=== PATIENT | male | born 1945 | race Caucasian/White ===

== ENCOUNTER 2023-05-06 08:20 | Day surgery (SDC) | payer OTHER ==
[2023-04-30 15:03] LABS: Hematocrit 38.6 % (39.6-49.0); MCV 92.4 fL (80-100); MPV 8.1 fL (7.6-11.3); RBC Red Blood Cell Count 4.18 M/uL (4.33-5.43)
[2023-04-30 15:07] LABS: Protime INR 1.05
--- NOTE | 2023-04-30 16:04 | RAD REPORT ---
EXAM DESCRIPTION: Anny Quarles And Melanie (2 Views)04/30/2023 3:37 pm CLINICAL HISTORY: Preop for lithotripsy COMPARISON: 2019 FINDINGS: Mild chronic appearing lung opacities. Mild left basilar opacity has developed The heart is mildly enlarged. Pacemaker leads in place IMPRESSION: Mild left basilar opacity may represent a mild pneumonia
--- NOTE | 2023-04-30 16:06 | RAD REPORT ---
EXAM DESCRIPTION: RAD - Abdomen 1 View (KUB) - 04/30/2023 3:37 pm CLINICAL HISTORY: Preop for lithotripsy FINDINGS: The bowel gas pattern is unremarkable. Vague 12 millimeter density overlies the expected location of the lower pole of the right kidney. Thi s may represent a calculus Pelvic calcifications unchanged 2019 presumably phleboliths
[2023-05-06] MEDS ORDERED: Ringers Lactate 1,000 ML IV ONE (08:51)
[2023-05-06] MEDS ORDERED: LIDOCAINE 2% MPF 5 ML VIAL ONE (09:50)
[2023-05-06] MEDS ORDERED: ONDANSETRON 4 MG/2 ML VIAL ONE (09:50)
[2023-05-06] MEDS ORDERED: propofoL 200 MG/20 ML VIAL IV ONE (09:50)
[2023-05-06] MEDS ORDERED: dexAMETHasone 4 MG/ML VIAL ONE (09:50)
[2023-05-06] MEDS ORDERED: FENTANYL CITR 100 MCG/2 ML ONE (09:50)
[2023-05-06] MEDS: CEFAZOLIN SODIUM 2 GM/VIAL ONE ×2 (11:18→11:26)
[2023-05-06] MEDS ORDERED: CODEINE 30MG/APAP 300MG TAB PO PRN (11:58)
[2023-05-06 14:02] VITALS: BP 137/89; TEMP 96.5; O2SAT 100
[2023-05-06] MEDS ORDERED: CEFAZOLIN SODIUM 2 GM/VIAL ONE (14:05)
--- NOTE | 2023-05-06 16:47 | OP ---
Surgeon: DOMINGA HOOVER Preoperative Diagnoses: 1.Right nephrolithiasis between 6 to 8 mm. 2.Lung opacity seen on preoperative chest x-ray. Postoperative Diagnoses: 1.Right nephrolithiasis between 6 to 8 mm. 2.Lung opacity seen on preoperative chest x-ray. Principal Procedure: Right extracorporeal shockwave lithotripsy/ESWL. Indication For Procedure: Mr. Quinonez is a 78-year-old gentleman with CHF, on digoxin, with a pacemak er defibrillator since 2005, with a history of hypertension, Hodgkin disease, history of colon cancer , and a prior renal calculi managed by ESWL with Dr. Mcdonald in [place] who presents with a solitar y residual right renal calculus measuring somewhere between 6 to [address]. He underwent pr eoperative cardiology evaluation and was cleared to proceed with a shockwave lithotripsy approach and specifically able to hold his aspirin for the requisite amount of time preoperative and postoperativ jake to allow him to have the noninvasive surgical management of his stone. Procedure In Detail: The patient was consented in the preoperative holding area and informed of the abnormal finding on his chest x-ray. He was counseled explicitly to follow up with his primary care physician and potentially see a admissions officer to evaluate that. I specifically counseled on the risk of undiagnosed lung malignancy and suggested that if he were unable to have that managed with [facility], he should notify me and I would introduce pulmonology consultation on his behal f. He agreed to see his PCP; so, he was then transferred to the operative suite where general anesth esia was induced. He was given Ancef 2 g IV antimicrobial prophylaxis and placed supine on the [facility] dure table with a water staff beneath his right flank. Targeting of the stone was performed using fl uoroscopic imaging in the AP and dorsal ventral domains and the faint 6 mm to 7 mm calcification was observed in the expected location within the lower pole lateral of the right kidney just above the L3 vertebral body. As a result, shockwave lithotripsy was then initiated with a power of 4 and increas ed over the course of 500 shocks to a power of approximately 6.5. A 2 minute pause was given at arou nd 200 shocks, and after the 2 minute pause, we continued with shockwave lithotripsy at a 1000 shocks , we reviewed the imaging and continued as long as the stone was visible for an additional 1000 shock s for a total of 2000 shocks delivered. At the end of the 2000 shocks, this stone was imperceptible on plain film/fluoroscopy, and so further shockwave lithotripsy was discontinued. He was then awaken ed from general anesthesia, transferred to a stretcher, and then transferred to the recovery room in good condition. Complications: None. Discharge Disposition: He should remain off his baby aspirin for at least the next 7 days and may re sume it at that time as long as his urine is free of blood and clear urine. Subsequent followup shou ld be established in about 1 to 2 months' time with a preclinic KUB obtained. He should also strain his urine to collect any stone dust in the interim. CARLITA/ILAN Voice ID: [id number] Report ID: [id number]
== END 2023-05-06 13:55 | disposition home or self-care (01) ==
LOC: OR 08:20
PROVIDERS: ATTEND Urology
PROC: 0TC08ZZ Extirpation of Matter from Right Kidney, Via Natural or Artificial Opening Endoscopic (ICD-10-PCS; principal; 2023-05-06 10:00)
DX: N20.0 Calculus of kidney (principal); I10 Essential (primary) hypertension; I50.9 Heart failure, unspecified; Z85.71 Personal history of Hodgkin lymphoma; Z85.038 Personal history of other malignant neoplasm of large intestine
CPT/HCPCS: 50590; 87088; 85025; 87086; 80048; 36415; 85610; 85730; 74018; 71046; J2704; J1100; J2001; J3010; J2405; J7120

== ENCOUNTER 2024-04-22 09:26 | Day surgery (SDC) | payer OTHER ==
[2024-04-07 15:38] LABS: Absolute Eosinophils 0.5 K/uL (0-0.5); Absolute Lymphocytes (CBC) 2.3 K/uL (0.7-4.9); Absolute Monocytes 0.9 K/uL (0.1-1.3); Absolute Neutrophil 4.3 K/uL (1.8-8.0); Basophils % 0.6 % (0-1.3); Eosinophils % 6.4 % (0-4.4); Hemoglobin 12.6 g/dL (13.6-17.9); Lymphocytes % 28.5 % (15.3-44.8); MCH 30.3 pg (27.0-35.0); MCHC 32.4 g/dL (32.0-36.0); MCV 93.5 fL (80-100); MPV 8.7 fL (7.6-11.3); Monocytes % 11.4 % (3.3-12.3); Neutrophils % 53.1 % (41.7-73.7); Nucleated Red Blood Cells % 0.1 % (0-0); Platelets 185 thou/uL (152-406); RBC Red Blood Cell Count 4.18 M/uL (4.33-5.43); Red Cell Distribution Width 15.2 % (12.1-15.2)
[2024-04-07 15:56] LABS: PT Prothrombin Time 12.1 SECONDS (9.5-12.5); Protime INR 1.1
[2024-04-07 15:58] LABS: Anion Gap 7.3 mEq/L (5.0-15.0); Potassium 4.3 mEq/L (3.5-5.1)
--- NOTE | 2024-04-07 21:42 | RAD REPORT ---
EXAM DESCRIPTION: RAD - Chest Pa And Lat (2 Views) - 04/07/2024 3:30 pm CLINICAL HISTORY: pre op. Hypertension COMPARISON: Chest Pa And Lat (2 Views) dated 04/30/2023; Abdomen 1 View (KUB) dated 06/14/2019 TECHNIQUE: PA and lateral views of the chest were obtained. FINDINGS: Left chest wall pacer in unchanged position. Patchy left basilar airspace opacification in volving the lower lobe, appears stable compared to the 04/30/2023 exam. Heart size is normal and cent ral vasculature is within normal limits. No pleural effusion or pneumothorax seen. No acute bony find ing noted. IMPRESSION: Stable patchy left basilar airspace opacities, may reflect scarring although possibility of recurrent pneumonia cannot be entirely excluded.
--- NOTE | 2024-04-12 15:11 | EKG ---
Test Date: 2024-04-07 Test Time: 15:17:17 Transmission Mechanic: NADEEM MEASUREMENT RESULTS: Intervals: Rate: 66 RI: 120 QRSD: 168 QT: 448 QTc: 469 Redby: P: 91 RI: 120 QRS: 265 T: 87 INTERPRETIVE STATEMENTS: AV sequential or dual chamber electronic pacemaker Compared to ECG 07/25/2008 10:31:15 No significant changes Electronically Signed On 04-12-24 14:57:07 CDT by Jayesh Diehl
[2024-04-22] MEDS: Ringers Lactate 1,000 ML IV ONE (10:05)
[2024-04-22] MEDS ORDERED: LIDOCAINE 1% MPF 5 ML VIAL ONE (11:00)
[2024-04-22] MEDS ORDERED: FENTANYL CITR 100 MCG/2 ML ONE (11:00)
[2024-04-22] MEDS ORDERED: propofoL 200 MG/20 ML VIAL IV ONE (11:00)
[2024-04-22] MEDS: CEFAZOLIN SODIUM 2 GM/VIAL ONE (12:14)
[2024-04-22] MEDS ORDERED: NS 0.9% VIAL 10 ML ONE (12:25)
[2024-04-22] MEDS ORDERED: Phenylephrine HCl 10 MG/ML 1 ML VIAL ONE (12:25)
[2024-04-22] MEDS ORDERED: HYDROCODONE/APAP 5/325 MG TAB PO PRN (13:43)
--- NOTE | 2024-04-22 13:44 | RAD REPORT ---
EXAM DESCRIPTION: RAD - Urethrocystogrphy Retrograde - 04/22/2024 1:19 pm CLINICAL HISTORY: ICD N 20.0 FINDINGS: 14 fluoroscopic spot images obtained. Fluoroscopy time.28 minutes Each ureter was cannulated and contrast administered. Subsequently an ureteral stent was placed in te ach ureter. Examination was performed by Dr Jim
[2024-04-22] MEDS ORDERED: PHENAZOPYRIDINE 100MG TAB PO ONE (14:05)
[2024-04-22] MEDS: PHENAZOPYRIDINE 100MG TAB PO ONE (14:09)
[2024-04-22 14:14] VITALS: BP 139/83; TEMP 97; O2SAT 100
--- NOTE | 2024-04-23 02:04 | OP ---
Date of Procedure: 04/22/2024 Surgeon: DOMINGA HOOVER Preoperative Diagnoses: 1.Right-sided hydronephrosis. 2.Bilateral delayed renal drainage. 3.Lower urinary tract symptoms, obstructive. Postoperative Diagnoses: 1.Right pelviectasis. 2.Right functional ureteral obstruction. 3.Left ureterovesical junction obstruction. 4.BPH with lower urinary tract obstruction and symptoms. 5.Membrano-bulbar urethral stricture. Principal Procedures: 1.Cystoscopy. 2.Sequential urethral dilation over a wire. 3.Bilateral retrograde pyelography. 4.Right ureteroscopy. 5.Right 7-American ureteral stent placement. 6.Left 6-American ureteral stent placement. 7.20-American urethral Gallardo catheter placement. Indication For Procedure: Mr. Quinonez presented to the Urology Clinic having a history of right nephr olithiasis and undergoing ESWL on the right side. Subsequently, he was evaluated at an outpatient fa cility with a MAG 3 Lasix renogram after hydronephrosis was observed and in the presence of chronic k idney disease. He was found to have bilateral delayed drainage on MAG 3 Lasix renography indicative of functional obstruction bilaterally. No stones were observed obstructing on anatomic imaging perfo rmed. As a result, evaluation was required to assess for stricture disease or other source of obstru ction. Of note, he also mentioned in the preoperative holding area that within the last few days, he suddenly developed obstructive lower urinary symptoms. Procedure In Detail: The patient was consented in the preoperative holding area before being transfe rred to the operative suite, where general anesthesia was induced. He was given Ancef 2 g IV antimic robial prophylaxis, and pneumo boots were provided for DVT prophylaxis. He was placed in the lithoto my position, padded and secured to the table appropriately. There was excessive difficulty getting h im in appropriate position because he had frozen hips bilaterally with the right hip severely more re stricted in movement than the left, and the right hip could not be lateralized at all. As a result, he was positioned in such a way that his hips and knees were close together, leaving only a narrow sp sami for access to his genitalia to perform the procedure. However, his genitalia were prepped with H ibiclens and draped in standard fashion. A 22-American rigid cystoscope was then used to traverse the pendulous into the perineal urethra before entering the bulbar urethra and observing the presence of a membranous urethral stricture that was likely 8 to 10-American in diameter. Attempts to pass this us ing the cystoscope only served to further aggravate the stricture disease; so I passed a Bentson guid ewire via the stricture disease and coiled it putatively in his bladder. I then utilized sequential dilators over the wire to dilate the stricture disease from 18-American to 24-American with relative ease . I then left the wire in place and placed the cystoscope alongside the wire and was able to navigat e beyond the dilated strictured area and through the prostatic urethra into his bladder. At this poi nt, I decompressed his bladder of fluid and urine, and then I backed into the prostatic urethra and s urveyed the channel. There was interdigitating lateral lobar hypertrophy with a small median lobe wi th lateral sulci present deeply bilaterally, potentially amenable to subsequent therapy via the UroLi ft. The bladder itself was free of any mucosal lesions, but there were some tiny stone fragments wit hin. The ureteral orifices were orthotopic in location. I started by cannulating the right ureteral orifice using a 5-American ureteral access catheter. Right retrograde pyelography: Using a 70:30 mixture of Omnipaque and saline, I injected the contrast via the 5-American ureteral access catheter. It did propagate up the distal and met a point of transi ent obstruction before it entered the mid ureter, where it met another point of transient obstruction before entering the proximal ureter and ultimately the renal pelvis. No specific sign of ureteropel jassi junction obstruction was noted. There was vokm-jh-quxoclyo pelviectasis with only minimal calyec tasis. Once the contrast did surpass and enter the renal pelvis, no specific area of ureteral narrow ing was appreciated along the entirety of the course of the ureter. However, I removed the 5-American ureteral access catheter after no filling defects were demonstrated, and then I performed timed spot fluoroscopic imagery at 5 minutes, 10 minutes, and ultimately 15 minutes. During the entirety of bill t observation, the right renal pelvis failed to drain significantly. The contrast in the ureter did seem to drain rapidly after removal of the 5-American ureteral access catheter, but the renal pelvis an d calyces had contrast remain throughout the entirety of the 15 minutes of observation. This would b e suggestive of a possible ureteropelvic junction obstruction on the right side, so I passed a Sensor wire via the 5-American ureteral access catheter into the collecting system, coiling it there. I then turned my attention to the patient's left side. I attempted to gain access into the ureteral orifice on the left using the 5-American ureteral access c atheter, but there was stenosis of the orifice. As a result, I required the tip of the Sensor wire, which also was difficult to insert due to the stenosis at the orifice. However, I was able to naviga te the tip of the Sensor wire past the point of stenosis and get the wire into the left ureteral orif ice, eventually advancing the 5-American ureteral access catheter over it into the distal ureter. I th en performed a retrograde pyelogram on the patient's left side. Left retrograde pyelography: Using a 70:30 mixture of Omnipaque and saline, contrast did progress up the distal into the mid and proximal ureter without any significant delay or filling defect or area of narrowing before entering the renal pelvis and calyces, which were sharp without any signs of pelv ocaliectasis. As a result, I removed the 5-American ureteral access catheter and observed the left kid tereza to drain. It did seem to rapidly efflux the contrast from the ureter and the renal pelvis did sl owly drain over the course of the next 10 minutes essentially with less than 50% of the contrast miguel ining in the renal pelvis between 10 and 15 minutes of observation. While this may be slightly delay ed drainage, this was not indicative of functional obstruction. It appeared the dilatation of the ur eterovesical junction on the left may have resolved that. As a result, I then turned my attention ba ck to the patient's right side, where I removed the cystoscope and passed a dual-lumen catheter over the Sensor wire into the renal pelvis on the right. I passed a dual-lumen catheter over the wire int o the renal pelvis on the right in order to dilate the ureteral orifice and enable semi-rigid uretero scopy. Right semi-rigid ureteroscopy: Using the semi-rigid ureteroscope, I was able to navigate the scope v ia the urethra into his bladder and into the right ureteral orifice. With pressurized irrigation and eventually passing a Fishidyson guidewire to use it as a guide over which I passed the ureteroscope, I was able to carefully navigate the semi-rigid ureteroscope over the wire all the way into the proxima l ureter at the level of the ureteropelvic junction. No area of strictured stenosis was noted along the entirety of the ureter and no masses or stones were visualized. As a result, I removed the semi- rigid ureteroscope and then back-loaded the cystoscope over the safety Sensor wire. I then passed a 7-American by 26 cm double-J ureteral stent over the Sensor wire coiling it within the collecting syste m on the right with a coil observed cystoscopically in his bladder. I then turned my attention to th e patient's left side, where I passed that Sensor wire into his collecting system on the left before passing a 6-American by 26 cm double-J stent over the wire coiling it within the renal pelvis on the le ft with a coil observed cystoscopically in his bladder on the left. I then left his bladder full and removed the cystoscope before passing a 20-American Gallrado catheter via his urethra into his bladder wi ease. About 15 cc of sterile water was left in the balloon, and the catheter was connected to leg bag drainage. The patient was then taken out of the lithotomy position, awakened from general anest hesia, transferred to a stretcher, and then transferred to the recovery room in good condition. Complications: None. Findings: 1.Right functional ureteral obstruction, potentially right UPJ obstruction. 2.Left UVJ obstruction, dilated and stented. 3.Bulbar urethral stricture disease, dilated and catheter placed. 4.BPH with lateral lobar hypertrophy and median lobe, amenable to the UroLift. Discharge Disposition: With regard to the patient's urethral Gallardo catheter, this can come out on with an active voiding trial provided in the clinic. He is taking cephalexin for another issue at this point, but if he is out of that antibiotic on Friday, a dose of Cipro or Levaquin can be prov ided. With regard to his left ureteral stent, 2 to 3 weeks of stenting should be adequate to manage the ure terovesical junction obstruction, and it can be removed in 2 to 3 weeks cystoscopically at the patien t's discretion. Regarding the right ureteral stent: That functional obstruction will best be managed with stenting f or at least 4-6 weeks. Cystoscopy and right ureteral stent extraction should be planned in 4 to 6 we eks. If the patient elects to wait and have both stents removed in 4 to 6 weeks, this may certainly be james shin. With regard to his prostatic urethral obstruction, if his urinary symptoms remain bothersome, conside ration for TRUS to evaluate the size of the prostate in preparation for UroLift may be made. Otherwise, as a recurrent stone former, metabolic profile assessment can be performed once the stents have both been removed. CARLITA/DULCEL Voice ID: [id number] Report ID: [id number]
== END 2024-04-22 14:36 | disposition home or self-care (01) ==
LOC: OR 09:26
PROVIDERS: ATTEND Urology
PROC: 0T788DZ Dilation of Bilateral Ureters with Intraluminal Device, Via Natural or Artificial Opening Endoscopic (ICD-10-PCS; principal; 2024-04-22 11:00)
DX: N13.30 Unspecified hydronephrosis (principal); N20.0 Calculus of kidney; N13.8 Other obstructive and reflux uropathy; N40.1 Benign prostatic hyperplasia with lower urinary tract symptoms; N13.5 Crossing vessel and stricture of ureter without hydronephrosis; N35.916 Unspecified urethral stricture, male, overlapping sites
CPT/HCPCS: 36415; 51610; 71046; 74450; 80048; 85025; 85610; 87086; 87088; 93005; A4216; J2001; J2371; J2704; J3010; J7120